=== PATIENT | male | born 1935 | race Caucasian/White ===

== ENCOUNTER 2017-01-06 04:07 | Inpatient (IN) | payer OTHER, BC ==
[~2017-01-06] VITALS: Ht 182.9 cm; Wt 85.0 kg
[~2017-01-06 04:07] MED LIST: ADVAIR HFA120 INHALA IH; ALTACE10 MG PO; ASPIRIN81 M2 PO; CARAFATE1 GM PO; CARVEDILOL25 MG PO; COREG12.5 M1 PO; DOCUSATE SODIU1 EAC1 PO; ELIQUIS5 MG PO; ENULOSE10 GM/15 M PO; FERROUS SULFAT325 MG PO; FUROSEMIDE20 MG PO; HYDRALAZINE HCL25 MG PO; ISOSORBIDE DINI20 MG PO; LASIX20 MG PO; LEVOFLOXACIN750 MG PO; METOPROLOL TART50 MG PO; MIRALAX255 GM PO; NIFEDIPINE ER90 MG PO; PLAVIX75 MG PO; PRAVASTATIN SOD40 MG PO; PREDNISONE1 MG PO; PREDNISONE20 MG PO; PREDNISONE5 MG PO; PROTONIX40 MG PO; SPIRIVA1 INHALATI IH; TAMSULOSIN HCL0.4 MG PO; UROXATRAL10 MG PO; VITAMIN D2000 INTUN PO; VITAMIN D22000 UNIT PO; ZETIA10 MG PO
[2017-01-06 04:46] LABS: HEMATOCRIT 32.4 % (38.0-50.0); MCH 29.1 PG (29.0-34.0); MCHC 31.5 G/DL (30.0-36.0); MCV 92.6 FL (86-99); MEAN PLAT.VOLUME 10.9 uM^3 (9.0-12.4); PLATELET COUNT 133 K/uL (156-360); RBC DIS.WIDTH-CV 13.6 % (11.8-14.6); RBC DIS.WIDTH-SD 46.1 % (39-53); WHITE BLOOD COUNT 9.3 K/uL (4.1-10.2)
[2017-01-06 05:07] LABS: INTER. NORMALIZED RATIO 1.1; PTT 26.6 (25-32)
[2017-01-06 05:31] LABS: TROP-I INTERPRETATION NEGATIVE; TROPONIN-I 0.04 ng/mL (0.0-0.30)
[2017-01-06 05:55] LABS: CHLORIDE 107 mEq/L (99-109); POTASSIUM 4.3 mEq/L (3.7-5.4); SODIUM 143 mEq/L (136-147)
[2017-01-06 05:56] LABS: GLUCOSE 146 mg/dL (70-99)
[2017-01-06 05:58] LABS: ANION GAP 13 MEQ/L (2-14)
[2017-01-06 06:00] LABS: GFR ESTIMATE (CALCULATED) 28 mL/min/
[2017-01-06 06:01] LABS: UREA NITROGEN (BUN) 28 mg/dL (9-23)
[2017-01-06] MEDS ORDERED: ELIQUIS2.5 MG PO (08:51)
[2017-01-06] MEDS ORDERED: CYANOCOBALAM1000 MCG PO (08:51)
[2017-01-06] MEDS ORDERED: FEOSOL325 MG PO (08:52)
[2017-01-06] MEDS ORDERED: UROXATRAL10 MG PO (08:55)
[2017-01-06] MEDS ORDERED: PROTONIX40 MG PO (08:56)
[2017-01-06 09:29] VITALS: BP 174/79
[2017-01-06 11:02] VITALS: BP 166/71
[2017-01-06 12:55] VITALS: BP 150/83
[2017-01-06 13:29] LABS: TROP-I INTERPRETATION POSITIVE; TROPONIN-I 0.66 ng/mL (0.0-0.30)
[2017-01-06 16:48] VITALS: BP 181/66
[2017-01-06 18:26] LABS: TROP-I INTERPRETATION POSITIVE; TROPONIN-I 2.01 ng/mL (0.0-0.30)
[2017-01-06 19:00] VITALS: BP 170/72
[2017-01-07] VITALS: BP 150/70
[2017-01-07 04:00] VITALS: BP 156/64
[2017-01-07 07:53] VITALS: BP 98/53
[2017-01-07 08:20] LABS: ANION GAP 7 MEQ/L (2-14); CHLORIDE 105 MEQ/L (99-109); GFR ESTIMATE (CALCULATED) 34 mL/min/; POTASSIUM 4.8 MEQ/L (3.7-5.4); SAMPLE HEMOLYSIS CHECK 0; SAMPLE ICTERIC CHECK 0; SAMPLE LIPEMIA CHECK 0; SODIUM 138 MEQ/L (136-147); UREA NITROGEN (BUN) 30 mg/dL (9-23)
[2017-01-07 08:21] LABS: GLUCOSE 103 mg/dL (70-99); TROP-I INTERPRETATION POSITIVE; TROPONIN-I 5.29 ng/mL (0.0-0.30)
[2017-01-07 11:16] LABS: HEMATOCRIT 27.2 % (38.0-50.0); MCH 29.5 PG (29.0-34.0); MCHC 31.6 G/DL (30.0-36.0); MCV 93.2 FL (86-99); MEAN PLAT.VOLUME 11.4 uM^3 (9.0-12.4); PLATELET COUNT 120 K/uL (156-360); RBC DIS.WIDTH-CV 13.7 % (11.8-14.6); RBC DIS.WIDTH-SD 46.8 % (39-53); RED BLOOD COUNT 2.92 M/uL (4.00-5.50); WHITE BLOOD COUNT 8.6 K/uL (4.1-10.2)
[2017-01-07 11:46] VITALS: BP 138/62
[2017-01-07 15:15] LABS: ADD MIUA? YES; BILIRUBIN NEGATIVE; BLOOD NEGATIVE; COLOR YELLOW ((YELLOW)); GLUCOSE (STRIP) NEGATIVE; KETONES NEGATIVE; LEUKOCYTES NEGATIVE; NITRITE NEGATIVE; PROTEIN (STRIP) 100; SPECIFIC GRAVITY 1.016 (1.000-1.030); UROBILINOGEN 0.2 MG/DL (0.2-1.0)
[2017-01-07 15:22] LABS: BACTERIA NONE SEEN /HPF; EPITHELIAL CELLS RARE /HPF; MUCUS TRACE /LPF; UCUL ADDED? NO; WHITE BLOOD CELLS 0-5 /HPF (0-5)
[2017-01-07 15:42] LABS: UR CREATININE CONCENTRATION 109.9 MG/DL
[2017-01-07 15:53] VITALS: BP 158/68
[2017-01-07 19:00] VITALS: BP 161/84
[2017-01-08 00:39] VITALS: BP 182/84
[2017-01-08 04:36] VITALS: BP 187/84
[2017-01-08 06:30] LABS: EOSINOPHIL (%) 2.7 % (0-5); EOSINOPHIL COUNT 0.2 K/uL (0-0.3); HEMATOCRIT 27.7 % (38.0-50.0); IMMATURE GRANULOCYTE (%) 0.5 % (0.0-0.7); INSTRUMENT ABS NEUTROPHIL CT 5.5 K/uL; LYMPHOCYTE COUNT 1.2 K/uL (1.0-2.8); MCH 28.9 PG (29.0-34.0); MCHC 31.8 G/DL (30.0-36.0); MCV 91.1 FL (86-99); MEAN PLAT.VOLUME 11.3 uM^3 (9.0-12.4); MONOCYTE COUNT 1.1 K/uL (0-0.8); NEUTROPHIL (%) 67.8 % (45-76); NEUTROPHIL COUNT 5.5 K/uL (1.8-6.4); PLATELET COUNT 114 K/uL (156-360); RBC DIS.WIDTH-CV 13.6 % (11.8-14.6); RBC DIS.WIDTH-SD 45.3 % (39-53); RED BLOOD COUNT 3.04 M/uL (4.00-5.50); WHITE BLOOD COUNT 8.1 K/uL (4.1-10.2)
[2017-01-08 07:01] LABS: ALKALINE PHOSPHATASE 46 IU/L (3-129); ANION GAP 8 MEQ/L (2-14); CHLORIDE 107 MEQ/L (99-109); CREATINE KINASE 75 IU/L (1-294); GFR ESTIMATE (CALCULATED) 29 mL/min/; GLUCOSE 99 mg/dL (70-99); MAGNESIUM 1.8 mg/dl (1.3-2.7); POTASSIUM 4.6 MEQ/L (3.7-5.4); SAMPLE HEMOLYSIS CHECK 0; SAMPLE ICTERIC CHECK 0; SAMPLE LIPEMIA CHECK 0; SODIUM 140 MEQ/L (136-147); TOTAL BILIRUBIN 0.4 MG/DL (0.0-1.0); UREA NITROGEN (BUN) 32 mg/dL (9-23)
[2017-01-08 08:47] VITALS: BP 148/66
[2017-01-08 16:01] VITALS: BP 175/79
[2017-01-08 16:25] LABS: TROP-I INTERPRETATION POSITIVE; TROPONIN-I 2.03 ng/mL (0.0-0.30)
[2017-01-08 19:55] VITALS: BP 132/62
[2017-01-09 00:58] VITALS: BP 166/74
[2017-01-09 04:02] VITALS: BP 120/65
[2017-01-09 06:56] LABS: HEMATOCRIT 28.3 % (38.0-50.0); MCH 29.4 PG (29.0-34.0); MCHC 31.8 G/DL (30.0-36.0); MCV 92.5 FL (86-99); PLATELET COUNT 122 K/uL (156-360); RBC DIS.WIDTH-CV 13.9 % (11.8-14.6); RBC DIS.WIDTH-SD 47.3 % (39-53); RED BLOOD COUNT 3.06 M/uL (4.00-5.50); WHITE BLOOD COUNT 7.1 K/uL (4.1-10.2)
[2017-01-09 07:17] LABS: ANION GAP 10 MEQ/L (2-14); CHLORIDE 106 MEQ/L (99-109); GFR ESTIMATE (CALCULATED) 31 mL/min/; GLUCOSE 105 mg/dL (70-99); POTASSIUM 4.9 MEQ/L (3.7-5.4); SAMPLE HEMOLYSIS CHECK 0; SAMPLE ICTERIC CHECK 0; SAMPLE LIPEMIA CHECK 0; SODIUM 143 MEQ/L (136-147); UREA NITROGEN (BUN) 38 mg/dL (9-23)
[2017-01-09 07:18] LABS: C3 COMPLEMENT 149 MG/DL (58-170); C4 COMPLEMENT 37 MG/DL (10-40)
[2017-01-09 07:39] VITALS: BP 157/72
[2017-01-09 08:36] VITALS: BP 186/78
[2017-01-09] MEDS ORDERED: IMDUR30 MG PO (10:42)
[2017-01-09] MEDS ORDERED: ASPIR 8181 M1 PO (10:42)
[2017-01-11 23:17] LABS: Neutrophil Cytoplasmic Aby Negative (Negative)
== END 2017-01-09 12:14 | disposition home or self-care (01) | DRG 281 ==
LOC: EME 04:07 → 5WEST 08:18 → EDOF 08:18 → 5WEST 09:18
PROVIDERS: Emergency Medicine; Hospitalist; Internal Medicine; Internal Medicine Cardiovascular Disease; Internal Medicine Nephrology; Physician Assistant Medical
DX: I21.4 Non-ST elevation (NSTEMI) myocardial infarction (principal); N17.9 Acute kidney failure, unspecified; I12.9 Hypertensive chronic kidney disease with stage 1 through stage 4 chronic kidney disease, or unspecified chronic kidney disease; N18.3 Chronic kidney disease, stage 3 (moderate); E78.2 Mixed hyperlipidemia; I25.118 Atherosclerotic heart disease of native coronary artery with other forms of angina pectoris; I48.2 Chronic atrial fibrillation; D50.0 Iron deficiency anemia secondary to blood loss (chronic); M06.9 Rheumatoid arthritis, unspecified; Z95.2 Presence of prosthetic heart valve; Z87.891 Personal history of nicotine dependence; D69.6 Thrombocytopenia, unspecified; I45.10 Unspecified right bundle-branch block; I44.5 Left posterior fascicular block; Z95.5 Presence of coronary angioplasty implant and graft; I27.2 Other secondary pulmonary hypertension; I08.1 Rheumatic disorders of both mitral and tricuspid valves; Z86.73 Personal history of transient ischemic attack (TIA), and cerebral infarction without residual deficits
CPT/HCPCS: 71010; 71250; 76770; 78452; 80048; 80053; 81003; 82550; 82570; 83735; 84100; 84156; 84484; 85025; 85027; 85610; 85730; 86021 90; 86038; 86160; 93005; 93017; 93306; 94799; 99281; 99285; A9500; G0378; J0360; J2270; J2405; J2785; J7030; J7512; S0028

== ENCOUNTER 2017-04-10 08:40 | Inpatient (IN) | payer OTHER, BC ==
[~2017-04-10] VITALS: Ht 182.9 cm; Wt 102.5 kg
[~2017-04-10 08:40] MED LIST changes: +ASPIR 8181 M1 PO; +CYANOCOBALAM1000 MCG PO; +ELIQUIS2.5 MG PO; +FEOSOL325 MG PO; +IMDUR30 MG PO
[2017-04-10 09:36] LABS: MCH 28.7 PG (29.0-34.0); MCHC 31.1 G/DL (30.0-36.0); MCV 92.2 FL (86-99); MEAN PLAT.VOLUME 11.4 uM^3 (9.0-12.4); PLATELET COUNT 137 K/uL (156-360); RBC DIS.WIDTH-CV 13.2 % (11.8-14.6); RBC DIS.WIDTH-SD 43.9 % (39-53); RED BLOOD COUNT 2.93 M/uL (4.00-5.50); WHITE BLOOD COUNT 10.7 K/uL (4.1-10.2)
[2017-04-10 09:49] LABS: CHLORIDE 108 mEq/L (99-109); POTASSIUM 4.1 mEq/L (3.7-5.4); SODIUM 143 mEq/L (136-147)
[2017-04-10 09:50] LABS: GLUCOSE 136 mg/dL (70-99)
[2017-04-10 09:52] LABS: ANION GAP 11 MEQ/L (2-14)
[2017-04-10 09:54] LABS: GFR ESTIMATE (CALCULATED) 23 mL/min/
[2017-04-10 09:55] LABS: UREA NITROGEN (BUN) 38 mg/dL (9-23)
[2017-04-10 11:10] LABS: TROP-I INTERPRETATION NEGATIVE; TROPONIN-I 0.05 ng/mL (0.0-0.30)
[2017-04-10 16:32] VITALS: BP 186/50
[2017-04-10 17:22] LABS: TROP-I INTERPRETATION NEGATIVE; TROPONIN-I 0.06 ng/mL (0.0-0.30)
[2017-04-10 18:29] VITALS: BP 166/52
[2017-04-10 19:45] VITALS: BP 190/58
[2017-04-10 22:44] VITALS: BP 140/52
[2017-04-11] VITALS (8 sets, daily range): BP systolic 129–171; BP diastolic 52–94
[2017-04-11 00:13] LABS: TROP-I INTERPRETATION NEGATIVE; TROPONIN-I 0.09 ng/mL (0.0-0.30)
[2017-04-11 07:25] LABS: CHLORIDE 106 mEq/L (99-109); POTASSIUM 4.4 mEq/L (3.7-5.4); SODIUM 143 mEq/L (136-147)
[2017-04-11 07:26] LABS: GLUCOSE 140 mg/dL (70-99)
[2017-04-11 07:28] LABS: ANION GAP 11 MEQ/L (2-14)
[2017-04-11 07:30] LABS: GFR ESTIMATE (CALCULATED) 22 mL/min/
[2017-04-11 07:31] LABS: UREA NITROGEN (BUN) 46 mg/dL (9-23)
[2017-04-11 08:00] LABS: EOSINOPHIL (%) 0 % (0-5); HEMATOCRIT 24.4 % (38.0-50.0); IMMATURE GRANULOCYTE (%) 0.6 % (0.0-0.7); IMMATURE GRANULOCYTE COUNT 0.1 K/uL; INSTRUMENT ABS NEUTROPHIL CT 8.7 K/uL; LYMPHOCYTE COUNT 1.1 K/uL (1.0-2.8); MCH 29.6 PG (29.0-34.0); MCHC 31.6 G/DL (30.0-36.0); MCV 93.8 FL (86-99); MEAN PLAT.VOLUME 11.1 uM^3 (9.0-12.4); MONOCYTE (%) 9.2 % (3-12); NEUTROPHIL (%) 80.1 % (45-76); NEUTROPHIL COUNT 8.7 K/uL (1.8-6.4); PLATELET COUNT 122 K/uL (156-360); RBC DIS.WIDTH-CV 13.3 % (11.8-14.6); RBC DIS.WIDTH-SD 45.6 % (39-53); WHITE BLOOD COUNT 10.9 K/uL (4.1-10.2)
[2017-04-11 11:01] LABS: IMM.RETIC FRACTION 12.1 % (3-19); RETIC HGB EQUIVALENT 26.5 (28-36); RETICULOCYTE COUNT 1.8 % (0.5-1.8)
[2017-04-11 11:31] LABS: LACTATE DEHYDROGENASE 275 IU/L (20-246)
[2017-04-11 12:03] LABS: IRON 17 MCG/DL (35-150)
[2017-04-11 12:09] LABS: FERRITIN 43 NG/ML (22-322)
[2017-04-11 21:55] LABS: HEMATOCRIT 26.9 % (38.0-50.0); MCH 29.7 PG (29.0-34.0); MCV 92.8 FL (86-99); MEAN PLAT.VOLUME 11.2 uM^3 (9.0-12.4); PLATELET COUNT 116 K/uL (156-360); RBC DIS.WIDTH-CV 13.2 % (11.8-14.6); RBC DIS.WIDTH-SD 45.2 % (39-53); WHITE BLOOD COUNT 11.5 K/uL (4.1-10.2)
[2017-04-12 03:15] VITALS: BP 138/62
[2017-04-12 05:53] LABS: EOSINOPHIL (%) 0.1 % (0-5); HEMATOCRIT 27.5 % (38.0-50.0); IMMATURE GRANULOCYTE (%) 0.6 % (0.0-0.7); IMMATURE GRANULOCYTE COUNT 0.1 K/uL; INSTRUMENT ABS NEUTROPHIL CT 9.7 K/uL; LYMPHOCYTE COUNT 0.9 K/uL (1.0-2.8); MCH 28.6 PG (29.0-34.0); MCHC 30.5 G/DL (30.0-36.0); MCV 93.5 FL (86-99); MEAN PLAT.VOLUME 11.9 uM^3 (9.0-12.4); MONOCYTE (%) 12.6 % (3-12); MONOCYTE COUNT 1.6 K/uL (0-0.8); NEUTROPHIL (%) 79.1 % (45-76); NEUTROPHIL COUNT 9.7 K/uL (1.8-6.4); PLATELET COUNT 129 K/uL (156-360); RBC DIS.WIDTH-CV 13.2 % (11.8-14.6); RBC DIS.WIDTH-SD 45.3 % (39-53); RED BLOOD COUNT 2.94 M/uL (4.00-5.50); WHITE BLOOD COUNT 12.3 K/uL (4.1-10.2)
[2017-04-12 06:15] LABS: ANION GAP 13 MEQ/L (2-14); CHLORIDE 104 MEQ/L (99-109); GFR ESTIMATE (CALCULATED) 17 mL/min/; GLUCOSE 137 mg/dL (70-99); POTASSIUM 4.7 MEQ/L (3.7-5.4); SAMPLE HEMOLYSIS CHECK 0; SAMPLE ICTERIC CHECK 0; SAMPLE LIPEMIA CHECK 0; SODIUM 142 MEQ/L (136-147); UREA NITROGEN (BUN) 59 mg/dL (9-23)
[2017-04-12 07:30] VITALS: BP 142/64
[2017-04-12 14:31] LABS: BASE EXCESS -0.3 mEq/L (-3 to +3); BICARBONATE 26.8 mEq/L (22-26); METHEMOGLOBIN 1.7 % (0-1.5); PCO2 57 mm Hg (35-45); PO2 62 mm Hg (80-100)
[2017-04-12 14:32] LABS: pH 7.28 (7.35-7.45)
[2017-04-12 14:33] LABS: COMMENTS - BLOOD GASES A+C+; DEVICE NC; O2 FLOW 4 L/MIN; SITE LR
[2017-04-12 15:55] VITALS: BP 124/57
[2017-04-12 17:19] LABS: BASE EXCESS -0.1 mEq/L (-3 to +3); BICARBONATE 26.6 mEq/L (22-26); CARBOXY HGB 1.5 % (0-5); METHEMOGLOBIN 1.6 % (0-1.5); PCO2 54 mm Hg (35-45); PO2 68 mm Hg (80-100); SITE LB
[2017-04-12 17:20] LABS: COMMENTS - BLOOD GASES C+; DEVICE NC; O2 FLOW 4 L/MIN; TOTAL RESP RATE 14 resp/min
[2017-04-12 20:00] VITALS: BP 136/60
[2017-04-12 23:30] VITALS: BP 137/67; BP 144/76
[2017-04-13 03:30] VITALS: BP 123/67
[2017-04-13 05:56] LABS: EOSINOPHIL (%) 0.4 % (0-5); HEMATOCRIT 25.3 % (38.0-50.0); IMMATURE GRANULOCYTE (%) 0.6 % (0.0-0.7); IMMATURE GRANULOCYTE COUNT 0.1 K/uL; INSTRUMENT ABS NEUTROPHIL CT 7.8 K/uL; LYMPHOCYTE COUNT 0.9 K/uL (1.0-2.8); MCH 28.8 PG (29.0-34.0); MCHC 31.2 G/DL (30.0-36.0); MCV 92.3 FL (86-99); MEAN PLAT.VOLUME 11.8 uM^3 (9.0-12.4); MONOCYTE COUNT 1.2 K/uL (0-0.8); NEUTROPHIL (%) 77.7 % (45-76); NEUTROPHIL COUNT 7.8 K/uL (1.8-6.4); PLATELET COUNT 124 K/uL (156-360); RBC DIS.WIDTH-CV 13.2 % (11.8-14.6); RBC DIS.WIDTH-SD 43.8 % (39-53); RED BLOOD COUNT 2.74 M/uL (4.00-5.50); WHITE BLOOD COUNT 10.1 K/uL (4.1-10.2)
[2017-04-13 06:36] LABS: ANION GAP 13 MEQ/L (2-14); CHLORIDE 102 MEQ/L (99-109); GFR ESTIMATE (CALCULATED) 12 mL/min/; GLUCOSE 110 mg/dL (70-99); POTASSIUM 4.6 MEQ/L (3.7-5.4); SAMPLE HEMOLYSIS CHECK 0; SAMPLE ICTERIC CHECK 0; SAMPLE LIPEMIA CHECK 0; SODIUM 139 MEQ/L (136-147); UREA NITROGEN (BUN) 78 mg/dL (9-23)
[2017-04-13 08:20] VITALS: BP 137/63
[2017-04-13 08:29] LABS: BASE EXCESS -1.2 mEq/L (-3 to +3); BICARBONATE 24.8 mEq/L (22-26); CARBOXY HGB 2.3 % (0-5); COMMENTS - BLOOD GASES A+C+; DEVICE NC; METHEMOGLOBIN 1.4 % (0-1.5); O2 FLOW 5 L/MIN; PCO2 47 mm Hg (35-45); PO2 62 mm Hg (80-100); SITE LR; TOTAL RESP RATE 22 resp/min; pH 7.33 (7.35-7.45)
[2017-04-13 12:00] VITALS: BP 122/58
[2017-04-13 15:40] VITALS: BP 134/61
[2017-04-13 19:30] VITALS: BP 134/84
[2017-04-13 23:00] VITALS: BP 138/63
[2017-04-14 03:27] VITALS: BP 122/60
[2017-04-14 05:30] LABS: EOSINOPHIL (%) 0.7 % (0-5); EOSINOPHIL COUNT 0.1 K/uL (0-0.3); HEMATOCRIT 24.2 % (38.0-50.0); IMMATURE GRANULOCYTE (%) 0.5 % (0.0-0.7); IMMATURE GRANULOCYTE COUNT 0.1 K/uL; INSTRUMENT ABS NEUTROPHIL CT 7.6 K/uL; LYMPHOCYTE COUNT 0.9 K/uL (1.0-2.8); MCH 29.1 PG (29.0-34.0); MCHC 31.8 G/DL (30.0-36.0); MCV 91.3 FL (86-99); MEAN PLAT.VOLUME 12.1 uM^3 (9.0-12.4); MONOCYTE COUNT 1.1 K/uL (0-0.8); NEUTROPHIL (%) 78.4 % (45-76); NEUTROPHIL COUNT 7.6 K/uL (1.8-6.4); PLATELET COUNT 136 K/uL (156-360); RBC DIS.WIDTH-CV 13.2 % (11.8-14.6); RBC DIS.WIDTH-SD 43.8 % (39-53); RED BLOOD COUNT 2.65 M/uL (4.00-5.50); WHITE BLOOD COUNT 9.7 K/uL (4.1-10.2)
[2017-04-14 06:02] LABS: ANION GAP 15 MEQ/L (2-14); CHLORIDE 100 MEQ/L (99-109); GFR ESTIMATE (CALCULATED) 10 mL/min/; GLUCOSE 130 mg/dL (70-99); POTASSIUM 4.7 MEQ/L (3.7-5.4); SAMPLE HEMOLYSIS CHECK 0; SAMPLE ICTERIC CHECK 0; SAMPLE LIPEMIA CHECK 0; SODIUM 136 MEQ/L (136-147); UREA NITROGEN (BUN) 93 mg/dL (9-23)
[2017-04-14 07:40] VITALS: BP 140/63
[2017-04-14 11:43] VITALS: BP 115/58
[2017-04-14 19:49] VITALS: BP 118/56
[2017-04-15] VITALS: BP 128/56
[2017-04-15 03:31] VITALS: BP 140/62
[2017-04-15 06:00] LABS: EOSINOPHIL (%) 1.2 % (0-5); EOSINOPHIL COUNT 0.1 K/uL (0-0.3); HEMATOCRIT 24.2 % (38.0-50.0); IMMATURE GRANULOCYTE (%) 0.5 % (0.0-0.7); IMMATURE GRANULOCYTE COUNT 0.1 K/uL; INSTRUMENT ABS NEUTROPHIL CT 7.7 K/uL; LYMPHOCYTE COUNT 0.7 K/uL (1.0-2.8); MCH 28.7 PG (29.0-34.0); MCHC 31.8 G/DL (30.0-36.0); MCV 90.3 FL (86-99); MEAN PLAT.VOLUME 11.4 uM^3 (9.0-12.4); MONOCYTE (%) 10.9 % (3-12); MONOCYTE COUNT 1.1 K/uL (0-0.8); NEUTROPHIL (%) 80.2 % (45-76); NEUTROPHIL COUNT 7.7 K/uL (1.8-6.4); PLATELET COUNT 132 K/uL (156-360); RBC DIS.WIDTH-CV 13.2 % (11.8-14.6); RBC DIS.WIDTH-SD 43.5 % (39-53); RED BLOOD COUNT 2.68 M/uL (4.00-5.50); WHITE BLOOD COUNT 9.6 K/uL (4.1-10.2)
[2017-04-15 06:27] LABS: ANION GAP 12 MEQ/L (2-14); CHLORIDE 100 MEQ/L (99-109); GFR ESTIMATE (CALCULATED) 12 mL/min/; GLUCOSE 121 mg/dL (70-99); POTASSIUM 4.7 MEQ/L (3.7-5.4); SAMPLE HEMOLYSIS CHECK 0; SAMPLE ICTERIC CHECK 0; SAMPLE LIPEMIA CHECK 0; SODIUM 137 MEQ/L (136-147); UREA NITROGEN (BUN) 72 mg/dL (9-23)
[2017-04-15 07:14] VITALS: BP 155/92
[2017-04-15 09:51] LABS: ADD MIUA? YES; BILIRUBIN NEGATIVE; BLOOD SMALL; COLOR AMBER ((YELLOW)); GLUCOSE (STRIP) NEGATIVE; KETONES NEGATIVE; LEUKOCYTES LARGE; NITRITE NEGATIVE; PROTEIN (STRIP) 100; SPECIFIC GRAVITY 1.017 (1.000-1.030); UROBILINOGEN 0.2 MG/DL (0.2-1.0)
[2017-04-15 10:01] LABS: BACTERIA RARE /HPF; BUDDING YEAST RARE; EPITHELIAL CELLS RARE /HPF; HYALINE CASTS 0-5 /LPF; MUCUS TRACE /LPF; RED BLOOD CELLS 15-20 /HPF (0-5); URIC ACID CRYSTALS 3+ /HPF; WHITE BLOOD CELLS 15-20 /HPF (0-5)
[2017-04-15 10:15] LABS: UR CREATININE CONCENTRATION 247.6 MG/DL
[2017-04-15 12:13] LABS: AHBS INDEX 0.43; ANTI-HEPATITIS B CORE (TOTAL) Nonreactive; HBCT INDEX 0.08; HBSG INDEX 0.25; HEPATITIS B SURFACE ANTIBODY Nonreactive; HPCA INDEX 0.11
[2017-04-15 12:14] VITALS: BP 154/67
[2017-04-15 16:17] VITALS: BP 174/97
[2017-04-15 16:57] LABS: INTERNAL CONTROL VALID? YES
[2017-04-15 19:06] VITALS: BP 135/64
[2017-04-16 04:36] VITALS: BP 137/67
[2017-04-16 06:22] LABS: EOSINOPHIL (%) 0.1 % (0-5); HEMATOCRIT 23.4 % (38.0-50.0); IMMATURE GRANULOCYTE (%) 0.6 % (0.0-0.7); IMMATURE GRANULOCYTE COUNT 0.1 K/uL; INSTRUMENT ABS NEUTROPHIL CT 10.6 K/uL; LYMPHOCYTE COUNT 0.6 K/uL (1.0-2.8); MCH 29.3 PG (29.0-34.0); MCHC 32.1 G/DL (30.0-36.0); MCV 91.4 FL (86-99); MEAN PLAT.VOLUME 11.6 uM^3 (9.0-12.4); MONOCYTE COUNT 1.4 K/uL (0-0.8); NEUTROPHIL (%) 83.5 % (45-76); NEUTROPHIL COUNT 10.6 K/uL (1.8-6.4); PLATELET COUNT 132 K/uL (156-360); RBC DIS.WIDTH-CV 13.2 % (11.8-14.6); RBC DIS.WIDTH-SD 43.8 % (39-53); RED BLOOD COUNT 2.56 M/uL (4.00-5.50); WHITE BLOOD COUNT 12.7 K/uL (4.1-10.2)
[2017-04-16 06:30] LABS: ANION GAP 9 MEQ/L (2-14); CHLORIDE 101 MEQ/L (99-109); GFR ESTIMATE (CALCULATED) 18 mL/min/; GLUCOSE 123 mg/dL (70-99); POTASSIUM 4.7 MEQ/L (3.7-5.4); SAMPLE HEMOLYSIS CHECK 0; SAMPLE ICTERIC CHECK 0; SAMPLE LIPEMIA CHECK 0; SODIUM 137 MEQ/L (136-147); UREA NITROGEN (BUN) 49 mg/dL (9-23)
[2017-04-16 07:08] VITALS: BP 157/72
[2017-04-16 11:00] VITALS: BP 147/64
[2017-04-16 14:54] VITALS: BP 145/66
[2017-04-16 20:15] VITALS: BP 166/72
[2017-04-17 00:08] VITALS: BP 129/70
[2017-04-17 05:04] VITALS: BP 146/67
[2017-04-17 06:45] LABS: BASE EXCESS -1.6 mEq/L (-3 to +3); BICARBONATE 25.6 mEq/L (22-26); CARBOXY HGB 1.8 % (0-5); METHEMOGLOBIN 1.3 % (0-1.5); PCO2 57 mm Hg (35-45); PO2 73 mm Hg (80-100); SITE RR; pH 7.26 (7.35-7.45)
[2017-04-17 06:46] LABS: COMMENTS - BLOOD GASES C+; DEVICE NC; O2 FLOW 6 L/MIN; TOTAL RESP RATE 16 resp/min
[2017-04-17 06:48] LABS: POINT-OF-CARE METER ID UU14174216
[2017-04-17 07:00] LABS: EOSINOPHIL (%) 0.2 % (0-5); HEMATOCRIT 23.1 % (38.0-50.0); IMMATURE GRANULOCYTE (%) 0.8 % (0.0-0.7); IMMATURE GRANULOCYTE COUNT 0.1 K/uL; INSTRUMENT ABS NEUTROPHIL CT 11.1 K/uL; LYMPHOCYTE COUNT 0.4 K/uL (1.0-2.8); MCH 29.4 PG (29.0-34.0); MCHC 31.6 G/DL (30.0-36.0); MCV 93.1 FL (86-99); MEAN PLAT.VOLUME 11.2 uM^3 (9.0-12.4); MONOCYTE (%) 5.2 % (3-12); MONOCYTE COUNT 0.6 K/uL (0-0.8); NEUTROPHIL (%) 90.5 % (45-76); NEUTROPHIL COUNT 11.1 K/uL (1.8-6.4); PLATELET COUNT 124 K/uL (156-360); RBC DIS.WIDTH-CV 13.3 % (11.8-14.6); RBC DIS.WIDTH-SD 45.1 % (39-53); RED BLOOD COUNT 2.48 M/uL (4.00-5.50); WHITE BLOOD COUNT 12.3 K/uL (4.1-10.2)
[2017-04-17 07:33] LABS: TROP-I INTERPRETATION NEGATIVE; TROPONIN-I 0.11 ng/mL (0.0-0.30)
[2017-04-17 07:34] LABS: ANION GAP 14 MEQ/L (2-14); CHLORIDE 99 MEQ/L (99-109); CREATINE KINASE 25 IU/L (1-294); GLUCOSE 145 mg/dL (70-99); MAGNESIUM 2.2 mg/dl (1.3-2.7); POTASSIUM 5.3 MEQ/L (3.7-5.4); SAMPLE HEMOLYSIS CHECK 0; SAMPLE ICTERIC CHECK 0; SAMPLE LIPEMIA CHECK 0; SODIUM 137 MEQ/L (136-147); TOTAL CK 25 IU/L (1-294); UREA NITROGEN (BUN) 70 mg/dL (9-23)
[2017-04-17 07:38] LABS: GFR ESTIMATE (CALCULATED) 12 mL/min/
[2017-04-17 07:54] LABS: CK-MB 1.8 ng/mL (0.0-4.9)
== END 2017-04-17 15:00 | DRG 189 ==
LOC: EME 08:40 → 4EAST 14:03 → EDOF 14:03 → 4EAST 16:04
PROVIDERS: Hospitalist; Internal Medicine; Internal Medicine Nephrology
PROC: 30233N1 Transfusion of Nonautologous Red Blood Cells into Peripheral Vein, Percutaneous Approach (ICD-10-PCS; principal; 2017-04-11)
PROC: 02HV33Z Insertion of Infusion Device into Superior Vena Cava, Percutaneous Approach (ICD-10-PCS; 2017-04-14)
PROC: 5A1D60Z (ICD-10-PCS; 2017-04-14)
DX: J96.01 Acute respiratory failure with hypoxia (principal); I13.0 Hypertensive heart and chronic kidney disease with heart failure and stage 1 through stage 4 chronic kidney disease, or unspecified chronic kidney disease; I50.33 Acute on chronic diastolic (congestive) heart failure; N18.4 Chronic kidney disease, stage 4 (severe); I16.0 Hypertensive urgency; N17.9 Acute kidney failure, unspecified; D63.1 Anemia in chronic kidney disease; D50.9 Iron deficiency anemia, unspecified; E78.00 Pure hypercholesterolemia, unspecified; I48.2 Chronic atrial fibrillation; I25.10 Atherosclerotic heart disease of native coronary artery without angina pectoris; E78.5 Hyperlipidemia, unspecified; K21.9 Gastro-esophageal reflux disease without esophagitis; M06.9 Rheumatoid arthritis, unspecified; R00.1 Bradycardia, unspecified; Z51.5 Encounter for palliative care; Z66 Do not resuscitate; Z86.73 Personal history of transient ischemic attack (TIA), and cerebral infarction without residual deficits; Z95.5 Presence of coronary angioplasty implant and graft; Z95.2 Presence of prosthetic heart valve; I25.2 Old myocardial infarction; Z87.891 Personal history of nicotine dependence; Z79.01 Long term (current) use of anticoagulants; Z88.0 Allergy status to penicillin; Z91.041 Radiographic dye allergy status
CPT/HCPCS: 36600; 71010; 71020; 74150; 76770; 80048; 80069; 81003; 82272; 82550; 82553; 82570; 82607; 82728; 82746; 82803; 82948; 83540; 83605; 83615; 83735; 83880; 84100; 84300; 84466; 84484; 84550; 85025; 85027; 85045; 86704; 86706; 86803; 86850; 86880; 86900; 86901; 86920; 87340; 89190; 93005; 94640; 94640 76; 94760; 94799; 99202; 99281; 99285; J0461; J1644; J1756; J1940; J2270; J7050; J7512; P9016